=== PATIENT | male | born 1960 | race American Indian/Alaskan Native ===

== ENCOUNTER 2016-10-28 21:39 | Emergency (ER) | payer SELFPAY ==
[2016-10-28 23:22] LABS: Alanine Aminotransferase 110 units/L (7-56); Albumin 4.4 g/dL (3.9-5); Albumin/Globulin Ratio 1.3 %; Alkaline Phosphatase 90 units/L (35-129); Anion Gap 22 mmol/L; BUN/Creatinine Ratio 13.33; Blood Urea Nitrogen 12 mg/dL (9-20); Carbon Dioxide 20 mmol/L (22-30); Chloride 99.6 mmol/L (98-107); Glucose 145 mg/dL (75-100); Potassium 3.5 mmol/L (3.6-5.0); Sodium 138 mmol/L (137-145); Total Protein 7.8 g/dL (6.3-8.2)
[2016-10-28 23:34] LABS: Hematocrit 45.3 % (35.5-45.6); Hemoglobin 15.4 gm/dl (11.8-15.2); Mean Corpuscular HGB Conc 34 % (32-34); Mean Corpuscular Hemoglobin 33 pg (28-32); Mean Corpuscular Volume 96 fl (84-94); Platelet Count 324 K/mm3 (140-440); Red Blood Count 4.72 M/mm3 (3.65-5.03); White Blood Count 9.6 K/mm3 (4.5-11.0)
[2016-10-28 23:36] LABS: Bilirubin,Urine NEG (Negative); Blood,Urine NEG (Negative); Ketones,Urine NEG (Negative); Leukocyte Esterase,Urine TR (Negative); Mucus,Urine FEW /HPF; Nitrite,Urine NEG (Negative); Protein,Urine <15 mg/dL mg/dL (Negative); RBC,Urine < 1.0 /HPF (0.0-6.0)
[2016-10-28 23:51] LABS: INR 1.16 (0.87-1.13)
[2016-10-29] MEDS ORDERED: CLEOCIN IM ONE (00:54)
[2016-10-29] MEDS ORDERED: TORADOL IM ONE (00:54)
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
[2016-10-29] MEDS ORDERED: K-DUR PO ONE (00:57)
--- NOTE | 2016-10-29 01:15 | XRay Report ---
FINAL REPORT PROCEDURE: XR FOOT 3+V LT TECHNIQUE: Left foot radiographs, AP, lateral, and oblique views. CPT 88193 HISTORY: R/O OSTEOMYELITIS COMPARISON: No prior studies are available for comparison. FINDINGS: Fracture (s) and/or Dislocation(s): None . Alignment: Normal . Joint space(s): Normal . Soft tissues: Normal . Bone mineralization: Normal . Foreign bodies: None . Calcaneal spurring: None . IMPRESSION: Normal Examination
[2016-10-29 01:55] VITALS: BP 139/77
[2016-10-29 04:00] LABS: Basophils % (Manual) 0 % (0.0-1.8); Blastocytes % (Manual) 0 %; Eosinophils % (Manual) 0 % (0.0-4.3); Giant Platelets Rare; RBC Morphology Normal
[2016-10-29 04:01] LABS: Diff Status Complete
== END 2016-10-29 02:42 | disposition home or self-care (01) ==
LOC: ED 21:39
DX: L03.116 Cellulitis of left lower limb (principal); D68.9 Coagulation defect, unspecified; E87.6 Hypokalemia; L97.521 Non-pressure chronic ulcer of other part of left foot limited to breakdown of skin; R74.8 Abnormal levels of other serum enzymes; X58.XXXA Exposure to other specified factors, initial encounter; Y93.9 Activity, unspecified; Y92.9 Unspecified place or not applicable; Y99.9 Unspecified external cause status
CPT/HCPCS: 36415; 73630; 80053; 81001; 82140; 82805; 85007; 85025; 85610; 96372; 99284; J1885

== ENCOUNTER 2018-09-26 22:08 | Inpatient (IN) | payer OTHER ==
--- NOTE | 2018-09-26 22:21 | Event Note ---
ED Screening Note Date of service: 09/26/18 Time: 22:16 ED Screening Note: 58 y/o male comes in for increase urination, thirty, heart racing and dry mouth and weight loss. This initial assessment/diagnostic orders/clinical plan/treatment(s) is/are subject to change based on patients health status, clinical progression and re- assessment by fellow clinical providers in the ED. Further treatment and workup at subsequent clinical providers discretion. Patient/guardian urged not to elope from the ED as their condition may be serious if not clinically assessed and managed. Initial orders include:
[2018-09-26 22:46] LABS: Hematocrit 42.6 % (35.5-45.6); Hemoglobin 15.2 gm/dl (11.8-15.2); Mean Corpuscular HGB Conc 36 % (32-34); Mean Corpuscular Volume 95 fl (84-94); Platelet Count 283 K/mm3 (140-440); Red Blood Count 4.51 M/mm3 (3.65-5.03); Red Cell Distribution Width 11.9 % (13.2-15.2)
[2018-09-26] MEDS ORDERED: NACL 0.9% 1000 ML 1,000 ML IV ONE ×2 (22:53)
[2018-09-26] MEDS ORDERED: NACL 0.9% 1000 ML 2,000 ML IV ONE (22:53)
[2018-09-26 22:57] LABS: Bacteria,Urine 4+ /HPF (Negative); Bilirubin,Urine NEG (Negative); Blood,Urine NEG (Negative); Color,Urine Straw (Yellow); Mucus,Urine 2+ /HPF; Protein,Urine <15 mg/dL mg/dL (Negative); Sperm,Urine FEW /HPF (NP); Urobilinogen,Urine < 2.0 mg/dL (<2.0)
[2018-09-26 23:08] LABS: Alanine Aminotransferase 84 units/L (7-56); Albumin 4.5 g/dL (3.9-5); BUN/Creatinine Ratio 13; Blood Urea Nitrogen 12 mg/dL (9-20); Calcium 9.8 mg/dL (8.4-10.2); Hemolysis Index 16
[2018-09-26] MEDS ORDERED: HumuLIN R IV ONE (23:29)
[2018-09-26] MEDS ORDERED: D50W (25GM) Syringe IV PRN (23:33)
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
[2018-09-26] MEDS ORDERED: HumuLIN R 100 UNITS in NACL 0.9% 99 ML IV SCH (23:45)
[2018-09-26] MEDS ORDERED: SODIUM CHLORIDE FLUSH SYRINGE 10 ML IV NR (23:45)
[2018-09-26] MEDS ORDERED: D5W/0.45% NACL/KCL 20 MEQ 20 MEQ/1,000 ML BAG IV SCH (23:45)
[2018-09-27 00:38] LABS: Basophils % (Manual) 0 % (0.0-1.8); Platelet Estimate Consistent w Auto; RBC Morphology Normal; Total Cells Counted 100
[2018-09-27] MEDS ORDERED: TYLENOL PO PRN (00:45)
[2018-09-27] MEDS ORDERED: SODIUM CHLORIDE FLUSH SYRINGE 10 ML IV PRN (00:45)
[2018-09-27] MEDS ORDERED: ZOFRAN IV PRN (00:45)
[2018-09-27] MEDS ORDERED: APRESOLINE IV PRN (00:47)
--- NOTE | 2018-09-27 00:48 | History and Physical Report ---
History of Present Illness Date of examination: 09/27/18 History of present illness: 58 year old man with history of BPH comes to emergency room complaining of frequent urination, increase thirst, dry mouth generalized weakness, dizziness and weight loss over the last 1 month. Patient started on insulin drip in the ER Review of systems Constitutional: no chills, fever Ears, eyes, nose, mouth and throat: no nasal congestion, no nasal discharge, no sinus pressure, no vision change, no red eye. Neck: No neck pain or rigidity. Cardiovascular: no palpitations, chest pain Respiratory: no cough, shortness of breath Gastrointestinal: no hematochezia, abdominal pain Genitourinary : no no hematuria Musculoskeletal: no joint swelling or muscle ache Integumentary: no rash, no pruritis Neurological: no parathesias, no focal weakness Endocrine: no cold or heat intolerance Hematologic/Lymphatic: no easy bruising, no easy bleeding, no gland swelling Allergic/Immunologic: no urticaria, no angioedema. PAST MEDICAL HISTORY:BPH PAST SURGICAL HISTORY: hand SOCIAL HISTORY: Denies alcohol, drugs, +tobacco FAMILY HISTORY: Hypertension Medications and Allergies Allergies Allergy/AdvReac Type Severity Reaction Status Date / Time No Known Allergies Allergy Verified 06/19/14 23:09 Home Medications Medication Instructions Recorded Confirmed Last Taken Type HYDROcodone/APAP 5-325 [[place] 1 each PO Q6HR PRN #10 tablet 06/19/14 04/12/15 Unknown Rx 5/325] Sulfamethoxazole/Trimethoprim 1 each PO BID #20 tablet 10/29/16 Unknown Rx [Bactrim DS TAB] Active Meds: Active Medications Acetaminophen (Tylenol) 650 mg PO Q4H PRN PRN Reason: Pain MILD(1-3)/Fever >100.5/RODRIGUEZ Dextrose (D50w (25gm) Syringe) 0 ml IV PRN PRN PRN Reason: Hypoglycemia Enoxaparin Sodium (Lovenox) 30 mg SUB-Q QDAY GABY Hydralazine HCl (Apresoline) 5 mg IV Q6H PRN PRN Reason: Hypertension Insulin Human Regular 100 (units/ Sodium Chloride) 100 mls @ 1 mls/hr IV TITR GABY; Protocol Last Admin: 09/27/18 00:13 Dose: 7 units/hr, 7 mls/hr Documented by: Potassium Chloride/Dextrose/Sod Cl (D5w/0.45% Nacl/Kcl 20 Meq) 20 meq in 1,000 mls @ 125 mls/hr IV DIRECT GABY Sodium Chloride (Nacl 0.9% 1000 Ml) 1,000 mls @ 125 mls/hr IV DIRECT GABY Ondansetron HCl (Zofran) 4 mg IV Q8H PRN PRN Reason: Nausea And Vomiting Sodium Chloride (Sodium Chloride Flush Syringe 10 Ml) 10 ml IV PRN NR Stop: 09/27/18 23:44 Sodium Chloride (Sodium Chloride Flush Syringe 10 Ml) 10 ml IV BID GABY Sodium Chloride (Sodium Chloride Flush Syringe 10 Ml) 10 ml IV PRN PRN PRN Reason: LINE FLUSH Exam - Physical Exam Narrative exam: General Apperance: The patient lying in bed, breathing comfortable HEENT: Normocephalic, atraumatic. Pupils equally round and reactive to light, EOMI, no sclericterus or JVD or thyromegaly or nodule. , no carotid bruit, mucous membranes dry, no exudate or erythema Heart: S1-S2, regular is rhythm Lungs: Clear to auscultation bilaterally, breathing comfortable Abdomen: Positive bowel sounds, soft, nontender, nondistended Extremities: No edema cyanosis clubbing Skin: no rash, nodule, warm and dry Neuro: cranial nerves 2-12 intact, speech is fluent, motor/sensory intact - Constitutional Vitals: Temp Pulse Resp BP Pulse Ox 97.8 F 84 17 129/87 99 09/26/18 22:19 09/26/18 23:06 09/26/18 23:06 09/26/18 23:06 09/26/18 23:06 Results - Labs CBC & Chem 7: 09/26/18 22:33 09/27/18 00:19 Labs: Abnormal lab results 09/26/18 09/26/18 09/26/18 Range/Units 22:22 22:33 22:33 MCV 95 H (84-94) fl MCH 34 H (28-32) pg MCHC 36 H (32-34) % RDW 11.9 L (13.2-15.2) % Lymphocytes % (Manual) 43.0 H (13.4-35.0) % Sodium 128 L (137-145) mmol/L Chloride 88.3 L (98-107) mmol/L Glucose 666 H* (75-100) mg/dL POC Glucose > 500 H (70-105) AST 66 H (5-40) units/L ALT 84 H (7-56) units/L Alkaline Phosphatase 133 H (35-129) units/L Total Protein 8.3 H (6.3-8.2) g/dL Ur Specific [place] (1.003-1.030) Urine WBC (Auto) (0.0-6.0) /HPF 09/26/18 Range/Units Unknown MCV (84-94) fl MCH (28-32) pg MCHC (32-34) % RDW (13.2-15.2) % Lymphocytes % (Manual) (13.4-35.0) % Sodium (137-145) mmol/L Chloride (98-107) mmol/L Glucose (75-100) mg/dL POC Glucose (70-105) AST (5-40) units/L ALT (7-56) units/L Alkaline Phosphatase (35-129) units/L Total Protein (6.3-8.2) g/dL Ur Specific [place] 1.031 H (1.003-1.030) Urine WBC (Auto) 9.0 H (0.0-6.0) /HPF Assessment and Plan Assessment HONK pseudohyponatremia UTI BPH Plan Admit to medicine Start DKA protocol with insulin drip, fluid Check serial chemistry, HbA1c Consult critical carem, educational aide Start IV rocephin, follow cultures DVT prophalaxis
[2018-09-27] MEDS ORDERED: NACL 0.9% 1000 ML 1,000 ML IV SCH (01:00)
[2018-09-27] MEDS ORDERED: ROCEPHIN/NS 1 GM/50 ML 1 GM/50 ML BAG IV ONE (01:16)
[2018-09-27] MEDS: ROCEPHIN/NS 1 GM/50 ML 1 GM/50 ML BAG IV SCH ×2 (01:19→10:49)
[2018-09-27 01:21] LABS: Hemolysis Index 33
[2018-09-27 02:22] LABS: BUN/Creatinine Ratio 14; Blood Urea Nitrogen 11 mg/dL (9-20)
[2018-09-27 02:44] LABS: Calcium 8.4 mg/dL (8.4-10.2); Hemolysis Index 4
[2018-09-27 03:03] LABS: BUN/Creatinine Ratio 13; Blood Urea Nitrogen 10 mg/dL (9-20)
[2018-09-27 05:46] LABS: Calcium 8.1 mg/dL (8.4-10.2); Hemolysis Index 4
[2018-09-27 06:15] LABS: BUN/Creatinine Ratio 11; Blood Urea Nitrogen 8 mg/dL (9-20)
[2018-09-27 06:25] LABS: BUN/Creatinine Ratio 13; Blood Urea Nitrogen 8 mg/dL (9-20); Hemolysis Index 37
[2018-09-27 08:46] LABS: BUN/Creatinine Ratio 13; Blood Urea Nitrogen 8 mg/dL (9-20); Calcium 8.1 mg/dL (8.4-10.2); Hemolysis Index 1
[2018-09-27] MEDS ORDERED: D50W (25GM) Syringe IV PRN (09:15)
--- NOTE | 2018-09-27 09:42 | Consultation ---
History of Present Illness Consult date: 09/27/18 Requesting physician: PERNELL MEDINA Reason for consult: other (DKA) History of present illness: 58 year old man with history of BPH comes to emergency room complaining of frequent urination, increase thirst, dry mouth generalized weakness, dizziness and weight loss over the last 1 month. Patient started on insulin drip in the ER Admitted to the ICU and I have been consulted for critical care management. Patient was seen and examined. Vitals, labs, medications, chart reviewed. Review of systems Constitutional: no chills, fever Ears, eyes, nose, mouth and throat: no nasal congestion, no nasal discharge, no sinus pressure, no vision change, no red eye. Neck: No neck pain or rigidity. Cardiovascular: no palpitations, chest pain Respiratory: no cough, shortness of breath Gastrointestinal: no hematochezia, abdominal pain Genitourinary : no no hematuria Musculoskeletal: no joint swelling or muscle ache Integumentary: no rash, no pruritis Neurological: no parathesias, no focal weakness Endocrine: no cold or heat intolerance Hematologic/Lymphatic: no easy bruising, no easy bleeding, no gland swelling Allergic/Immunologic: no urticaria, no angioedema. PAST MEDICAL HISTORY: BPH PAST SURGICAL HISTORY: hand surgery SOCIAL HISTORY: Denies alcohol, drugs, +tobacco FAMILY HISTORY: Hypertension Medications and Allergies Allergies Allergy/AdvReac Type Severity Reaction Status Date / Time No Known Allergies Allergy Verified 06/19/14 23:09 Home Medications Medication Instructions Recorded Confirmed Last Taken Type Prostate Health Caplet 1 tab PO DAILY 09/27/18 09/27/18 09/25/18 08:00 History Active Meds: Active Medications Acetaminophen (Tylenol) 650 mg PO Q4H PRN PRN Reason: Pain MILD(1-3)/Fever >100.5/RODRIGUEZ Dextrose (D50w (25gm) Syringe) 50 ml IV PRN PRN PRN Reason: Hypoglycemia Enoxaparin Sodium (Lovenox) 40 mg SUB-Q QDAY GABY Hydralazine HCl (Apresoline) 5 mg IV Q6H PRN PRN Reason: Hypertension Sodium Chloride (Nacl 0.9% 1000 Ml) 1,000 mls @ 125 mls/hr IV DIRECT GABY Last Admin: 09/27/18 02:20 Dose: 125 mls/hr Documented by: Ceftriaxone Sodium (Rocephin/Ns 1 Gm/50 Ml) 1 gm in 50 mls @ 100 mls/hr IV Q24HR GABY; Protocol Last Admin: 09/27/18 01:19 Dose: 100 mls/hr Documented by: Insulin Human Isoph/Insulin Regular (Humulin 70/30) 15 unit SUB-Q BIDDIAB GABY Insulin Human Regular (Humulin R) 0 units SUB-Q ACHS GABY; Protocol Ondansetron HCl (Zofran) 4 mg IV Q8H PRN PRN Reason: Nausea And Vomiting Sodium Chloride (Sodium Chloride Flush Syringe 10 Ml) 10 ml IV BID GABY Sodium Chloride (Sodium Chloride Flush Syringe 10 Ml) 10 ml IV PRN PRN PRN Reason: LINE FLUSH Physical Examination Vital signs: Vital Signs Temp Pulse Resp BP Pulse Ox 97.8 F 91 H 20 139/100 100 09/26/18 22:19 09/26/18 22:19 09/26/18 22:19 09/26/18 22:19 09/26/18 22:19 General appearance: no acute distress Eyes: non-icteric ENT: oropharynx moist Neck: supple, no lymphadenopathy, no JVD Effort: normal Ascultation: Bilateral: clear, diminished breath sounds (at the bases) Cardiovascular: regular rate and rhythm, other (S1,S2, no murmurs, gallops or rubs) Gastrointestinal: normoactive bowel sounds, soft, non-tender, non-distended Integumentary: normal Extremities: no cyanosis, no edema, pink and warm, pulses normal normal mental status, pupils equal and round, CN II-XII normal, motor strength normal and mood appropriate, affect normal Results - Laboratory Findings CBC and BMP: 09/26/18 22:33 09/27/18 08:09 Abnormal lab findings: Abnormal Labs 09/26/18 09/26/18 09/26/18 22:22 22:33 22:33 MCV 95 H MCH 34 H MCHC 36 H RDW 11.9 L Lymphocytes % (Manual) 43.0 H Sodium 128 L Potassium Chloride 88.3 L BUN Creatinine Glucose 666 H* POC Glucose > 500 H Hemoglobin A1c Calcium AST 66 H ALT 84 H Alkaline Phosphatase 133 H Total Protein 8.3 H Ur Specific [place] Urine WBC (Auto) 09/26/18 09/27/18 09/27/18 Unknown 00:13 00:19 MCV MCH MCHC RDW Lymphocytes % (Manual) Sodium Potassium Chloride BUN Creatinine Glucose POC Glucose 397 H Hemoglobin A1c 16.2 H Calcium AST ALT Alkaline Phosphatase Total Protein Ur Specific [place] 1.031 H Urine WBC (Auto) 9.0 H 09/27/18 09/27/18 09/27/18 00:19 01:15 01:42 MCV MCH MCHC RDW Lymphocytes % (Manual) Sodium Potassium Chloride 97.7 L BUN Creatinine Glucose 348 H 251 H POC Glucose 273 H Hemoglobin A1c Calcium AST ALT Alkaline Phosphatase Total Protein Ur Specific [place] Urine WBC (Auto) 09/27/18 09/27/18 09/27/18 01:45 03:11 04:07 MCV MCH MCHC RDW Lymphocytes % (Manual) Sodium Potassium Chloride BUN Creatinine Glucose POC Glucose 255 H 143 H 194 H Hemoglobin A1c Calcium AST ALT Alkaline Phosphatase Total Protein Ur Specific [place] Urine WBC (Auto) 09/27/18 09/27/18 09/27/18 04:19 05:04 05:43 MCV MCH MCHC RDW Lymphocytes % (Manual) Sodium Potassium 3.3 L 3.4 L Chloride 110.1 H 110.8 H BUN 8 L 8 L Creatinine 0.7 L 0.6 L Glucose 121 H 113 H POC Glucose 113 H Hemoglobin A1c Calcium 8.1 L 8.0 L AST ALT Alkaline Phosphatase Total Protein Ur Specific [place] Urine WBC (Auto) 09/27/18 09/27/18 09/27/18 05:59 06:51 08:09 MCV MCH MCHC RDW Lymphocytes % (Manual) Sodium Potassium 3.4 L Chloride 109.8 H BUN 8 L Creatinine 0.6 L Glucose 143 H POC Glucose 124 H 137 H Hemoglobin A1c Calcium 8.1 L AST ALT Alkaline Phosphatase Total Protein Ur Specific [place] Urine WBC (Auto) 09/27/18 09/27/18 08:22 09:16 MCV MCH MCHC RDW Lymphocytes % (Manual) Sodium Potassium Chloride BUN Creatinine Glucose POC Glucose 141 H 170 H Hemoglobin A1c Calcium AST ALT Alkaline Phosphatase Total Protein Ur Specific [place] Urine WBC (Auto) Assessment and Plan Hyperglycemic hyperosmolar state/DKA Hyponatremia- resolved Tobacco abuse disorder -Continue therapy per DKA protocol- serial BMPs, insulin infusion, volume resuscitation -VTE prophylaxis -Transition to basal bolus insulin therapy -Smoking cessation counseling done at the bedside >7 minutes -Diabetic education- consult nutrition -Discussed with hospitalist service, transfer telemetry once patient is transitioned to subcut insulin with a steady carb diet.
[2018-09-27] MEDS: SODIUM CHLORIDE FLUSH SYRINGE 10 ML IV SCH ×2 (10:48→22:11)
[2018-09-27] MEDS: LOVENOX SUB-Q SCH (10:48)
[2018-09-27] MEDS: HumuLIN R SUB-Q SCH ×3 (11:15→22:10)
--- NOTE | 2018-09-27 12:07 | Progress Note ---
Assessment and Plan Assessment and plan: Hyperosmolar nonketotic syndrome. Blood glucose is stabilized. Insulin drip will be discontinued. We will start 70/30 insulin twice a day. ADA diet and sliding scale insulin. We will also start metformin. Pseudohyponatremia. Resolved. UTI. Continue antibiotics. Follow-up urine culture. BPH. Consider Flomax. History Interval history: 58-year-old male presents to the emergency department with complaints of polyuria and polydipsia as well as weight loss for one month. Patient diagnosed with new onset diabetes mellitus type 2 and hyperosmolar nonketotic syndrome. Patient was treated with IV insulin drip and now transitioned to 70/30 insulin twice a day. Hospitalist Physical - Constitutional Vitals: Temp Pulse Resp BP Pulse Ox 98.4 F 63 11 L 97/47 97 09/27/18 08:00 09/27/18 11:31 09/27/18 11:31 09/27/18 11:31 09/27/18 11:31 General appearance: Present: no acute distress, well-nourished - EENT Eyes: Present: PERRL, EOM intact ENT: hearing intact, clear oral mucosa, dentition normal - Neck Neck: Present: supple, normal ROM - Respiratory Respiratory effort: normal Respiratory: bilateral: CTA - Cardiovascular Rhythm: regular Heart Sounds: Present: S1 & S2. Absent: gallop, rub - Extremities Extremities: no ischemia, No edema, Full ROM - Abdominal General gastrointestinal: soft, non-tender, non-distended, normal bowel sounds - Integumentary Integumentary: Present: clear, warm, dry - Neurologic Neurologic: CNII-XII intact, moves all extremities Results - Labs CBC & Chem 7: 09/26/18 22:33 09/27/18 08:09 Labs: Laboratory Last Values WBC 10.3 K/mm3 (4.5-11.0) 09/26/18 22:33 RBC 4.51 M/mm3 (3.65-5.03) 09/26/18 22:33 Hgb 15.2 gm/dl (11.8-15.2) 09/26/18 22:33 Hct 42.6 % (35.5-45.6) 09/26/18 22:33 MCV 95 fl (84-94) H 09/26/18 22:33 MCH 34 pg (28-32) H 09/26/18 22:33 MCHC 36 % (32-34) H 09/26/18 22:33 RDW 11.9 % (13.2-15.2) L 09/26/18 22:33 Plt Count 283 K/mm3 (140-440) 09/26/18 22:33 Lymph # Toppiece Cutter 09/26/18 22:33 Add Manual Diff Complete 09/26/18 22:33 Total Counted 100 09/26/18 22:33 Seg Neuts % (Manual) 50.0 % (40.0-70.0) 09/26/18 22:33 0 % 09/26/18 22:33 43.0 % (13.4-35.0) H 09/26/18 22:33 Reactive Lymphs % (Man) 0 % 09/26/18 22:33 5.0 % (0.0-7.3) 09/26/18 22:33 2.0 % (0.0-4.3) 09/26/18 22:33 0 % (0.0-1.8) 09/26/18 22:33 0 % 09/26/18 22:33 0 % 09/26/18 22:33 0 % 09/26/18 22:33 0 % 09/26/18 22:33 Nucleated RBC % Not Reportable 09/26/18 22:33 Seg Neutrophils # Man 5.2 K/mm3 (1.8-7.7) 09/26/18 22:33 Band Neutrophils # 0.0 K/mm3 09/26/18 22:33 4.4 K/mm3 (1.2-5.4) 09/26/18 22:33 Abs React Lymphs (Man) 0.0 K/mm3 09/26/18 22:33 0.5 K/mm3 (0.0-0.8) 09/26/18 22:33 0.2 K/mm3 (0.0-0.4) 09/26/18 22:33 0.0 K/mm3 (0.0-0.1) 09/26/18 22:33 0.0 K/mm3 09/26/18 22:33 0.0 K/mm3 09/26/18 22:33 0.0 K/mm3 09/26/18 22:33 Blast Cells # 0.0 K/mm3 09/26/18 22:33 WBC Morphology Not Reportable 09/26/18 22:33 Hypersegmented Neuts Not Reportable 09/26/18 22:33 Hyposegmented Neuts Not Reportable 09/26/18 22:33 Hypogranular Neuts Not Reportable 09/26/18 22:33 Not Reportable 09/26/18 22:33 Not Reportable 09/26/18 22:33 Not Reportable 09/26/18 22:33 Not Reportable 09/26/18 22:33 Not Reportable 09/26/18 22:33 Not Reportable 09/26/18 22:33 Consistent w auto 09/26/18 22:33 Not Reportable 09/26/18 22:33 Plt Clumps, EDTA Not Reportable 09/26/18 22:33 Not Reportable 09/26/18 22:33 Not Reportable 09/26/18 22:33 Not Reportable 09/26/18 22:33 Plt Morphology Comment Not Reportable 09/26/18 22:33 RBC Morphology Normal 09/26/18 22:33 Dimorphic RBCs Not Reportable 09/26/18 22:33 Not Reportable 09/26/18 22:33 Not Reportable 09/26/18 22:33 Not Reportable 09/26/18 22:33 Not Reportable 09/26/18 22:33 Not Reportable 09/26/18 22:33 Not Reportable 09/26/18 22:33 Not Reportable 09/26/18 22:33 Not Reportable 09/26/18 22:33 Not Reportable 09/26/18 22:33 Not Reportable 09/26/18 22:33 Not Reportable 09/26/18 22:33 Not Reportable 09/26/18 22:33 Not Reportable 09/26/18 22:33 Not Reportable 09/26/18 22:33 Not Reportable 09/26/18 22:33 Not Reportable 09/26/18 22:33 Not Reportable 09/26/18 22:33 Not Reportable 09/26/18 22:33 Not Reportable 09/26/18 22:33 Acanthocytes (Spur) Not Reportable 09/26/18 22:33 Rouleaux Not Reportable 09/26/18 22:33 Not Reportable 09/26/18 22:33 Not Reportable 09/26/18 22:33 Not Reportable 09/26/18 22:33 Not Reportable 09/26/18 22:33 Hem Pathologist Commnt No 09/26/18 22:33 VBG pH 7.376 (7.320-7.420) 09/26/18 22:33 Sodium 143 mmol/L (137-145) 09/27/18 08:09 Potassium 3.4 mmol/L (3.6-5.0) L 09/27/18 08:09 Chloride 109.8 mmol/L (98-107) H 09/27/18 08:09 Carbon Dioxide 25 mmol/L (22-30) 09/27/18 08:09 12 mmol/L 09/27/18 08:09 BUN 8 mg/dL (9-20) L 09/27/18 08:09 0.6 mg/dL (0.8-1.5) L 09/27/18 08:09 Estimated GFR > 60 ml/min 09/27/18 08:09 13 % 09/27/18 08:09 Glucose 143 mg/dL (75-100) H 09/27/18 08:09 POC Glucose 121 (70-105) H 09/27/18 11:18 16.2 % (4-6) H 09/27/18 00:19 Calcium 8.1 mg/dL (8.4-10.2) L 09/27/18 08:09 Phosphorus 2.80 mg/dL (2.5-4.5) 09/27/18 00:19 Magnesium 2.10 mg/dL (1.7-2.3) 09/26/18 23:15 0.80 mg/dL (0.1-1.2) 09/26/18 22:33 AST 66 units/L (5-40) H 09/26/18 22:33 ALT 84 units/L (7-56) H 09/26/18 22:33 133 units/L (35-129) H 09/26/18 22:33 98 units/L (55-170) 09/26/18 23:15 < 0.010 ng/mL (0.00-0.029) 09/26/18 22:33 8.3 g/dL (6.3-8.2) H 09/26/18 22:33 4.5 g/dL (3.9-5) 09/26/18 22:33 1.2 % 09/26/18 22:33 TSH 3.980 mlU/mL (0.270-4.200) 09/26/18 23:15 Straw (Yellow) 09/26/18 Unknown Slightly-cloudy (Clear) 09/26/18 Unknown 5.0 (5.0-7.0) 09/26/18 Unknown Ur Specific [place] 1.031 (1.003-1.030) H 09/26/18 Unknown <15 mg/dl mg/dL (Negative) 09/26/18 Unknown >=500 mg/dL (Negative) 09/26/18 Unknown 20 mg/dL (Negative) 09/26/18 Unknown Neg (Negative) 09/26/18 Unknown Neg (Negative) 09/26/18 Unknown Neg (Negative) 09/26/18 Unknown < 2.0 mg/dL (<2.0) 09/26/18 Unknown Ur Leukocyte Esterase Tr (Negative) 09/26/18 Unknown 9.0 /HPF (0.0-6.0) H 09/26/18 Unknown 12.0 /HPF (0.0-6.0) 09/26/18 Unknown U Epithel Cells (Auto) 1.0 /HPF (0-13.0) 09/26/18 Unknown 4+ /HPF (Negative) 09/26/18 Unknown 2+ /HPF 09/26/18 Unknown 1+ /HPF 09/26/18 Unknown Few /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) 09/26/18 Unknown Active Medications - Current Medications Current Medications: Generic Name Dose Route Start Last Admin Trade Name Freq PRN Reason Stop Dose Admin Acetaminophen 650 mg 09/27/18 00:45 Tylenol PO Q4H PRN Pain MILD(1-3)/Fever >100.5/RODRIGUEZ Dextrose 50 ml 09/27/18 09:15 D50w (25gm) Syringe IV PRN PRN Hypoglycemia Enoxaparin Sodium 40 mg 09/27/18 10:00 09/27/18 10:48 Lovenox SUB-Q 40 mg QDAY GABY Administration Hydralazine HCl 5 mg 09/27/18 00:47 Apresoline IV Q6H PRN Hypertension Ceftriaxone Sodium 1 gm in 50 mls @ 100 mls/hr 09/27/18 00:48 09/27/18 10:49 Rocephin/Ns 1 Gm/50 Ml IV 100 mls/hr Q24HR GABY Administration Protocol Insulin Human Isoph/Insulin Regular 15 unit 09/27/18 11:00 09/27/18 11:14 Humulin 70/30 SUB-Q 15 unit BIDDIAB GABY Administration Insulin Human Regular 0 units 09/27/18 11:30 09/27/18 11:15 Humulin R SUB-Q Not Given ACHS GABY Protocol Ondansetron HCl 4 mg 09/27/18 00:45 Zofran IV Q8H PRN Nausea And Vomiting Sodium Chloride 10 ml 09/27/18 10:00 09/27/18 10:48 Sodium Chloride Flush Syringe 10 Ml IV 10 ml BID GABY Administration Sodium Chloride 10 ml 09/27/18 00:45 Sodium Chloride Flush Syringe 10 Ml IV PRN PRN LINE FLUSH
[2018-09-27] MEDS: NACL 0.9% 1000 ML 1,000 ML IV SCH (12:30)
[2018-09-27] MEDS: GLUCOPHAGE PO SCH (17:01)
[2018-09-28] MEDS: NACL 0.9% 1000 ML 1,000 ML IV SCH (01:59)
[2018-09-28 06:07] LABS: Hematocrit 33.9 % (35.5-45.6); Hemoglobin 12.3 gm/dl (11.8-15.2); Mean Corpuscular HGB Conc 36 % (32-34); Mean Corpuscular Volume 94 fl (84-94); Platelet Count 221 K/mm3 (140-440); Red Blood Count 3.61 M/mm3 (3.65-5.03); Red Cell Distribution Width 12.1 % (13.2-15.2)
[2018-09-28 06:46] LABS: BUN/Creatinine Ratio 8; Blood Urea Nitrogen 5 mg/dL (9-20); Calcium 7.9 mg/dL (8.4-10.2); Hemolysis Index 16
[2018-09-28 07:22] LABS: Basophils % (Manual) 0 % (0.0-1.8); Total Cells Counted 100
[2018-09-28 07:23] LABS: Anisocytosis 1+
[2018-09-28] MEDS: HumuLIN R SUB-Q SCH ×2 (07:30→11:30)
[2018-09-28] MEDS: GLUCOPHAGE PO SCH (09:01)
[2018-09-28] MEDS: LOVENOX SUB-Q SCH (10:00)
[2018-09-28] MEDS: ROCEPHIN/NS 1 GM/50 ML 1 GM/50 ML BAG IV SCH (10:00)
[2018-09-28] MEDS: SODIUM CHLORIDE FLUSH SYRINGE 10 ML IV SCH (10:04)
--- NOTE | 2018-09-28 10:35 | Discharge Summary ---
Providers - Providers Date of Admission: 09/27/18 00:45 Date of discharge: 09/28/18 Attending physician: PERNELL MEDINA 09/26/18 23:31 Consult to Physician [CONS] Urgent Comment: Dr. Saucedo spoke with Dr. Radford @ [phone] Consulting Provider: ALLISON RADFORD Physician Instructions: Reason For Exam: hyperosmolar state on insulin drip Primary care physician: [facility], Hospitalization Reason for admission: HONK, new DM Condition: Stable Hospital course: 58-year-old male presents to the emergency department with complaints of polyuria and polydipsia as well as weight loss for one month. Patient diagnosed with new onset diabetes mellitus type 2 and hyperosmolar nonketotic syndrome. Patient was treated with IV insulin drip and now transitioned to 70/30 insulin twice a day. The patient was also started on metformin twice a day with significant improvement in blood glucose. Patient will receive diabetic teaching prior to discharge. Patient is to follow with primary care physician. Dedicated discharge time 32 minutes. Disposition: - TO HOME OR SELFCARE Time spent for discharge: 32 - Discharge Diagnoses (1) Acute hyperglycemia Status: Acute (2) Dehydration Status: Acute (3) Metabolic acidosis Status: Acute Core Measure Documentation - Palliative Care Palliative Care/ Comfort Measures: Not Applicable - Core Measures Any of the following diagnoses?: none Exam - Constitutional Vitals: Temp Pulse Resp BP Pulse Ox 97.9 F 43 L 18 118/61 96 09/28/18 05:38 09/28/18 05:38 09/28/18 05:38 09/28/18 05:38 09/28/18 05:38 General appearance: Present: no acute distress, well-nourished - EENT Eyes: Present: PERRL ENT: hearing intact, clear oral mucosa - Neck Neck: Present: supple, normal ROM - Respiratory Respiratory effort: normal Respiratory: bilateral: CTA - Cardiovascular Heart Sounds: Present: S1 & S2. Absent: rub, click - Extremities Extremities: pulses symmetrical, No edema Peripheral Pulses: within normal limits - Abdominal General gastrointestinal: Present: soft, non-tender, non-distended, normal bowel sounds Male genitourinary: Present: normal - Integumentary Integumentary: Present: clear, warm, dry - Musculoskeletal Musculoskeletal: gait normal, strength equal bilaterally - Psychiatric Psychiatric: appropriate mood/affect, intact judgment & insight - Neurologic Neurologic: CNII-XII intact, moves all extremities Plan Activity: advance as tolerated Weight Bearing Status: Weight Bear as Tolerated Diet: diabetic Follow up with: JHONATHAN BOWENS MD [Primary Care Provider] - 3-5 Days Prescriptions: metFORMIN [Glucophage] 500 mg PO BIDDIAB #60 tablet Lancets 1 each MC ACHS #30 each Insulin NPH/Regular [NovoLIN 70/30] 25 unit SUB-Q BIDDIAB 30 Days units
[2018-09-28 13:44] VITALS: BP 119/65
== END 2018-09-28 15:30 | disposition home or self-care (01) | DRG 689 ==
LOC: ED 22:08 → CC1 09-27 00:45 → 3A 09-27 13:51
PROVIDERS: ADMIT Internal Medicine; ATTEND Hospitalist
DX: N39.0 Urinary tract infection, site not specified (principal); E11.00 Type 2 diabetes mellitus with hyperosmolarity without nonketotic hyperglycemic-hyperosmolar coma (NKHHC); E87.2 Acidosis; E87.1 Hypo-osmolality and hyponatremia; F17.200 Nicotine dependence, unspecified, uncomplicated; E86.0 Dehydration; R82.71 Bacteriuria; Z82.49 Family history of ischemic heart disease and other diseases of the circulatory system; N40.0 Benign prostatic hyperplasia without lower urinary tract symptoms
CPT/HCPCS: 36415; 80048; 80053; 81001; 82550; 82805; 82962; 83036; 83735; 84100; 84443; 84484; 85007; 85025; 87086; 93005; 93010; 96361; 96374; G0378; J0696; J1650; J1815; J7030

== ENCOUNTER 2020-10-09 18:30 | Emergency (ER) | payer SELFPAY ==
[2020-10-09 18:40] VITALS: BP 136/75
--- NOTE | 2020-10-09 19:17 | XRay Report ---
LEFT THUMB 4 VIEWS INDICATION / CLINICAL INFORMATION: laceration. COMPARISON: None available. FINDINGS: Soft tissue laceration and surrounding gauze is seen within the left thumb. No fracture or radiopaque foreign body is seen. Signer Name: Dwayne Ware MD Signed: 10/09/2020 7:12 PM Workstation Name: [id number]
[2020-10-09] MEDS ORDERED: IBUPROFEN 600 MG TAB PO ONE (22:09)
[2020-10-09] MEDS ORDERED: TETANUS,DIPH,PERTUSS(ACELL) VACCINE 0.5 ML SYRINGE IM ONE (22:09)
[2020-10-09] MEDS ORDERED: ACETAMINOPHEN 500 MG TAB PO ONE (22:09)
[2020-10-09] MEDS ORDERED: LIDOCAINE-MPF (1%) 10 MG/1 ML VIAL 5 ML INFILTRATI ONE (22:09)
--- NOTE | 2020-10-09 23:04 | Emergency Department Report ---
Upper Extremity - HPI Chief Complaint: Wound/Laceration Stated Complaint: DEEP CUT ON HAND Upper Extremity: Left Thumb (left thumb laceration with pain) Occurred When: Today Mechanism: Other (left thumb laceration) Symptoms: Yes Pain with Movement, Yes Laceration or Abrasion (Dorsal left thumb laceration wound), No Deformity, No Limited Range of Movement, No Numbness, No Weakness, No Swelling, No Bruising/Ecchymosis Other History: Patient is a 60-year-old -Citizen Of [place] male with past medical history of [id number] diabetes who presents to the ED with complaint of acute onset persistent painful bleeding dorsal left thumb laceration wound after he accidentally cut his left thumb with a saw at work about 6 hours ago. Patient states that the bleeding is well controlled at this time. Patient states that he is not up-to-date with his tetanus vaccination. Patient denies numbness and tingling or weakness of left hand or left arm, dizziness, syncope, nausea and vomiting or fall. ED Review of Systems ROS: Stated complaint: DEEP CUT ON HAND Other details as noted in HPI Constitutional: denies: chills, fever Eyes: denies: eye pain, eye discharge, vision change ENT: denies: ear pain, throat pain Respiratory: denies: cough, shortness of breath, wheezing Cardiovascular: denies: chest pain, palpitations Endocrine: no symptoms reported Gastrointestinal: denies: abdominal pain, nausea, diarrhea Genitourinary: denies: urgency, dysuria Musculoskeletal: arthralgia (Left thumb pain due to a bleeding dorsal left thumb laceration wound). denies: back pain, joint swelling Skin: other (Bleeding left thumb laceration wound with localized pain). denies: rash, lesions Neurological: denies: headache, weakness, paresthesias Psychiatric: denies: anxiety, depression Hematological/Lymphatic: denies: easy bleeding, easy bruising ED Past Medical Hx - Past Medical History Hx Diabetes: Yes Additional medical history: SWOLLEN PROSTATE - Surgical History Additional Surgical History: FX ON RIGHT HAND - Social History Smoking Status: Current Every Day Smoker - Medications Home Medications: Home Medications Medication Instructions Recorded Confirmed Last Taken Type Prostate Health Caplet 1 tab PO DAILY 09/27/18 09/27/18 09/25/18 08:00 History Insulin NPH/Regular [NovoLIN 70/30] 25 unit SUB-Q BIDDIAB 30 Days 09/28/18 Unknown Rx units Lancets 1 each ACHS #30 each 09/28/18 Unknown Rx metFORMIN [Glucophage] 500 mg PO BIDDIAB #60 tablet 09/28/18 Unknown Rx Ibuprofen [Motrin] 800 mg PO Q8HR PRN #24 tablet 10/09/20 Unknown Rx cephALEXin [Keflex] 500 mg PO Q8HR #30 cap 10/09/20 Unknown Rx Upper Extremity Exam - Exam General: Vital signs noted. No distress. Alert and acting appropriately. Head and Torso: No HEENT Abnormality, No Neck Tenderness, No Chest/Lungs Abnormality, No Abdominal Tenderness, No Back Tenderness Shoulder Exam: Yes Normal Range of Motion in Shoulder, No Shoulder Tenderness, No Clavicle Tenderness, No Shoulder Deformity, No AC Joint Tenderness Arm Exam: No Arm/Humerus Tenderness, No Arm Deformity Elbow: Yes Normal Range of Motion in Elbow, No Elbow Tenderness, No Elbow Deformity Forearm: No Forearm Tenderness, No Forearm Deformity, No Pain with Pronation, No Pain with Supination Wrist: Yes Normal ROM in Wrist, No Wrist Tenderness, No Wrist Deformity, No Snuffbox Tenderness, No Pain with Axial Thumb Compression Hand: Yes Digit Tenderness (Localized dorsal left thumb tenderness due to a 3 cm laceration), Yes Normal ROM in Digit(s), No Hand Tenderness, No Hand Deformity, No Digit(s) Deformity, No Tendon Dysfunction CMS Exam: Yes Broken Skin (Dorsal left thumb bleeding 3 cm laceration wound), Yes Normal Distal Pulses, Yes Normal Capillary Refill, Yes Normal Distal Sensation ED Course Vital Signs 10/09/20 10/09/20 10/09/20 18:39 22:39 22:40 Temperature 98.2 F Pulse Rate 85 Respiratory 20 18 18 Rate Blood Pressure 136/75 O2 Sat by Pulse 98 Oximetry - Laceration /Wound Repair Left Dorsal Finger Wound Location: upper extremity (Dorsal left thumb laceration) Irrigated w/ Saline (ccs): 3 Betadine Prep?: Yes Anesthesia: 1% Lidocaine Volume Anesthetic (ccs): 5 Wound Debrided: extensive Wound Repaired With: sutures Suture Size/Type: 4:0, proline Number of Sutures: 5 Layer Closure?: No Sterile Dressing Applied?: Yes Progress: The wound was cleaned thoroughly with no normal saline and extensively debrided with both normal saline and Betadine solutions. The left thumb was then infiltrated with lidocaine 1% solution through a digital block, and about 5 cc of lidocaine 1% solution was used. When anesthesia was fully achieved, the wound was sutured per protocol with Prolene 4-0 sutures for a total of 5 stitches. Patient tolerated the procedure well. The wound was then dressed appropriately and on reevaluation, the left arm was neurovascularly intact. Patient was therefore discharged home on pain medication and prophylactic antibiotics and advised to return to the ED immediately if symptoms get worse, otherwise follow-up with his primary care physician or return to the ED in 12 to 14 days for suture removal. ED Medical Decision Making - Radiology Data Radiology results: report reviewed, image reviewed [facility] [address] [place] [address] XRay Report Signed Patient: YOEL SULLIVAN MR#: [id number] : 1960 Acct:[id number] Age/Sex: 60 / M ADM Date: 10/09/20 Loc: ED Attending Dr: Ordering Physician: FLORES GALEAS Date of Service: 10/09/20 Procedure(s): XR finger(s) 2+V LT Accession Number(s): [id number] cc: FLORES GALEAS Fluoro Time In Minutes: LEFT THUMB 4 VIEWS INDICATION / CLINICAL INFORMATION: laceration. COMPARISON: None available. FINDINGS: Soft tissue laceration and surrounding gauze is seen within the left thumb. No fracture or radiopaque foreign body is seen. Signer Name: Dwayne Ware MD Signed: 10/09/2020 7:12 PM Workstation Name: [id number] Transcribed By: TL Dictated By: Dwayne Ware MD Electronically Authenticated By: Dwayne Ware MD Signed Date/Time: 10/09/201911 DD/ 10 TD/TT: - Medical Decision Making This is a 60-year-old -Citizen Of [place] male with past medical history with past medical history of oef-oyuexpy-nutafpafi diabetes who presents to the ED with complaint of acute onset persistent painful bleeding dorsal left thumb laceration wound after he accidentally cut his left thumb with a saw at work about 6 hours ago. Patient states that the bleeding is well controlled at this time. Patient states that he is not up-to-date with his tetanus vaccination. In the ED, patient is alert and oriented x3 and is not in any distress. Patient was treated for pain in the ED and also given booster tetanus vaccinations. The left thumb x-ray showed no acute fractures or subluxations or presence of any foreign bodies embedded in the soft tissues of the left thumb. The left thumb laceration wound was extensively cleaned with normal saline and Betadine and the wound was sutured per protocol after application of a local anesthetic lidocaine 1% solution. The wound was then dressed appropriately. Patient tolerated the procedure well. Patient was neurovascularly intact on left arm left hand. Patient was therefore discharged home on pain medications and prophylactic antibiotics and was advised to follow-up with his primary care physician in 7 to 10 days for reevaluation or return to the ED immediately if symptoms get worse. Patient was otherwise advised to return to the ED or to his primary care physician in 12 to 14 days for suture removal. - Differential Diagnosis thumb laceration; finger fracture; finger abrasion; puncture wound Critical care attestation.: If time is entered above; I have spent that time in minutes in the direct care of this critically ill patient, excluding procedure time. ED Disposition Clinical Impression: Laceration of left thumb without complication Qualifiers: Encounter type: initial encounter Qualified Code(s): S61.012A - Laceration without foreign body of left thumb without damage to nail, initial encounter Disposition: DC-01 TO HOME OR SELFCARE Is pt being admited?: No Does the pt Need Aspirin: No Condition: Stable Instructions: Laceration Care, Adult, [id number], Sutured Wound Care, [id number] Additional Instructions: Take medication with food, drink plenty of fluids and follow-up with your primary care physician in 7 to 10 days for reevaluation. Return to the ED immediately if symptoms get worse. Otherwise return to the ED or to your primary care physician in 12 to 14 days for suture removal. Prescriptions: cephALEXin [Keflex] 500 mg PO Q8HR #30 cap Ibuprofen [Motrin] 800 mg PO Q8HR PRN #24 tablet PRN Reason: Pain , Severe (7-10) Referrals: [facility] [Provider Group] - 7-10 days Time of Disposition: 23:09 Print Language: JAMAICAN
== END 2020-10-09 23:35 | disposition home or self-care (01) ==
LOC: ED 18:30
DX: S61.012A Laceration without foreign body of left thumb without damage to nail, initial encounter (principal); F17.200 Nicotine dependence, unspecified, uncomplicated; Z79.899 Other long term (current) drug therapy; W26.8XXA Contact with other sharp object(s), not elsewhere classified, initial encounter; Y93.89 Activity, other specified; Y92.89 Other specified places as the place of occurrence of the external cause; Y99.8 Other external cause status
CPT/HCPCS: 90471; 90715; 99283